=== PATIENT | male | born 1985 | race Two or more races ===

== ENCOUNTER 2025-07-11 21:05 | Emergency (ER) | payer BC ==
[~2025-07-11] VITALS: Ht 170.2 cm; Wt 97.7 kg
[2025-07-11 21:08] VITALS: BP 153/84; PULSE 120; RESP 16; O2SAT 99
--- NOTE | 2025-07-11 21:45 | Physician Documentation ---
History of Present Illness ~ Chief Complaint: Laceration Stated Complaint: FINGER PAIN Time Seen by MD: 21:45 HPI Patient presents to the emergency room with a cut to his left middle finger. He is peeling potatoes when he cut himself. Tetanus reported to be up-to-date came in his that has not stopped bleeding. Medication Reconciliation Allergies: Coded Allergies: No Known Allergies (Unverified , 07/11/25) Review of Systems ROS All review of systems negative except as per HPI Physical Exam Vital Signs: Temperature: 98.1, Source: Oral, Heart Rate: 120, Respiratory Rate: 16, BP: 153/84, Pulse Oximetry: 99, Weight: 97.730 Physical Exam General: Patient is awake, alert, oriented x4 in no acute distress and well appearing.~ Head: Normocephalic and atraumatic. Eyes: Conjunctival normal. EOMI. PERRL. ENT: Mucous membranes moist. Neck: Supple, trachea is midline. Chest: Clear to auscultation bilaterally without rales, rhonchi, or wheezes. There is no accessory muscle use or retractions. Cardiac: RRR without murmurs, gallops, or rubs. Extremities: Left middle finger with 0.5 cm partial-thickness laceration to tip of patient's left middle finger with oozing bleeding. Less than 2nd capillary refill in movements intact Progress Results/Orders Results/Orders Vital Signs 07/11/25 21:08 Temp 98.1 Pulse 120 Resp 16 B/P (MAP) 153/84 Pulse Ox 99 Medical Decision Making Findings Patient presents to the emergency room with a cut as per HPI. Tetanus reported to be up-to-date. He had not feel labs or imaging is necessary. Surgicel applied. That has he had not feel he has any danger of bleeding out. Departure Disposition: 01 HOME / SELF CARE / HOMELESS Impression: Primary Impression: Laceration Condition: Stable Discharge Instructions: Laceration Care, Adult, [id number] Referrals: NO PRIMARY CARE PROVIDER (PCP) Signature Scribe Signature: No scribe Attestation: The note accurately reflects work and decisions made by me.Isidro Valencia MD 07/11/25 21:51 ISIDRO VALENCIA MD Jul 11, 2025 21:45
[2025-07-11 22:08] VITALS: TEMP 98.1
== END 2025-07-11 22:19 | disposition home or self-care (01) ==
LOC: EDBD 21:09 → ER 21:09
DX: S61.213A Laceration without foreign body of left middle finger without damage to nail, initial encounter (principal); W26.9XXA Contact with unspecified sharp object(s), initial encounter; Y93.89 Activity, other specified; Y92.89 Other specified places as the place of occurrence of the external cause; Y99.8 Other external cause status
CPT/HCPCS: 99282; A6258